=== PATIENT | female | born 2000 | race Caucasian/White ===

== ENCOUNTER 2025-02-25 15:31 | Inpatient (IN) ==
--- NOTE | 2025-02-25 15:51 | History & Physical Report ---
Date of Service February 25, 2025 Assessment & Plan (1) Supervision of normal intrauterine in primigravida: Plan: Admit to L&D. EFM/toco. Labs. IV. Undecided about epidural. PCN for GBS+ History of Present Illness Chief Complaint: labor Primary Care Provider: DAYANA PCP 24yo @ 40 12/08, came to L&D with contractions. Starting cortez earlier this morning, these have increased to Q2 min at this point. 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 Allergies Allergy/AdvReac Type Severity Reaction Status Date / Time No Known Allergies Allergy Verified 02/22/25 13:49 Home Medications Medication Instructions Recorded Confirmed Type prenat.vits,sara,[id number] tab PO 07/11/24 02/22/25 History skin cleanser comb no.10 [Gentle topical 07/11/24 02/22/25 History Skin Cleanser(with SLS)] triamcinolone acetonide 0.1 % topical 07/11/24 02/22/25 History topical ointment azelaic acid topical PRN 07/18/24 02/22/25 History Patient History Medical History (Updated 02/05/25 @ 08:14 by Wandy Ryder) Asthma Psoriasis Surgical History (Updated 08/18/24 @ 09:44 by Iveth Wilson MD) S/P dilation and curettage S/P exploratory laparotomy x3 as an infant 08/2000 - ex lap w/ broviac placement 09/2000 - 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 10/2000 - ex lap, LILIA, small bowel resection, gastrostomy, jejunojejunostomy, appendectomy Family History (Updated 07/11/24 @ 13:38 by Wandy Ryder) Other Breast cancer Diabetes Dyslipidemia Heart disease Hypertension Kidney disease Lung disease Ovarian cancer Social History (Updated 07/11/24 @ 13:39 by Wandy Ryder) Smoking Status: Never smoker Do You Dip or Chew Tobacco: No; marital status: Single marital status details: Maxim (26) [phone] Current Living Situation: Significant Other Current Living Situation Comment: lives with fob, 1cat, fob to change litter current occupational status: employed current occupation: exceptional student education teacher Review of Systems All systems reviewed & are unremarkable except as noted in HPI & below Physical Exam Physical Exam: Uncomfortable. FHT Cat 1 Magee Q 2 SVE 5/100/-2, bulging membranes Constitutional: WD/WN, vitals as above Respiratory: normal respiratory effort, lungs clear to auscultation no respiratory distress Cardiovascular: Rate/Rhythm: regular rate and regular rhythm Gastrointestinal (Abdomen): Inspection/Auscultation: abdomen normal to inspection Percussion/Palpation: abdomen soft; abdomen nontender Gravid. No s/s chorio or abruption. Skin: no rashes, warm and dry Psychiatric: A+Ox3, euthymic affect Coding Level of Care Code None Diagnoses Supervision of normal intrauterine in primigravida Z34.00
[2025-02-25] MEDS: LACTATED RINGER'S 1,000 ML IV PRN (15:55)
[2025-02-25 16:16] LABS: Hematocrit (blood only) 37.7 % (37.0-47.0); Hemoglobin 13.7 g/dl (12.0-16.0); Mean Corpuscular Hemoglobin 30.1 pg (25.0-34.0); Mean Corpuscular Hgb Conc 36.3 g/dL (32.0-36.0); Mean Corpuscular Volume 82.9 fL (80.0-100.0); Mean Platelet Volume 11.7 fL (9.4-12.4); Platelet Count 169 K/uL (130-400); RDW Coefficient of Variation 12.2 % (11.5-14.5); RDW Standard Deviation 37.2 fL (36.4-46.3); Red Blood Count 4.55 M/uL (4.20-5.40); White Blood Count 14.48 K/ul (4.8-10.8)
[2025-02-25] MEDS ORDERED: NALOXONE HCL 0.4 MG/1 ML VIAL/CARP IV PRN (16:29)
[2025-02-25] MEDS ORDERED: ePHEDrine sulfate 50 MG/ML AMP IV PRN (16:29)
[2025-02-25] MEDS ORDERED: fentaNYL citrate PF 100 MCG/2 ML VIAL EPI PRN (16:29)
[2025-02-25] MEDS ORDERED: NALBUPHINE HCL INJ 10 MG/ML AMP IV PRN (16:29)
[2025-02-25] MEDS ORDERED: diphenhydrAMINE 50 MG/ML VIAL IV PRN (16:29)
[2025-02-25] MEDS ORDERED: ROPIVACAINE 0.5% PF 5 MG/ML 20 ML VIAL EPI PRN (16:29)
[2025-02-25] MEDS ORDERED: BUPIVACAINE 0.25% PF 30 ML VIAL EPI PRN (16:29)
[2025-02-25] MEDS ORDERED: SODIUM CHLORIDE 0.9% PF INJ 10 ML VIAL EPI PRN (16:29)
[2025-02-25] MEDS ORDERED: NALOXONE HCL 1 MG in SODIUM CHLORIDE 0.9% 1,000 ML IV PRN (16:29)
[2025-02-25] MEDS ORDERED: LIDOCAINE 2% MPF LOCAL 5 ML VIAL EPI PRN (16:29)
[2025-02-25] MEDS ORDERED: fentANYL 2 MCG/ML BUPIVacaine 0.125%-NSS 100ML BAG EPI PRN (16:29)
--- NOTE | 2025-02-25 16:29 | Anesthesiology Consultation ---
Date of Service February 25, 2025 Assessment & Plan (1) Encounter for pre-operative examination: Chart Review Chart Review: Patient NOT seen in Pre Admission Testing and Acceptable Risk for Labor Epidural Consults Requested none History Height/Weight Height: 5 ft 2 in Weight: 86.183 kg Allergies Allergy/AdvReac Type Severity Reaction Status Date / Time No Known Allergies Allergy Verified 02/22/25 13:49 Medications Home Medications Medication Instructions Recorded Confirmed Last Taken prenat.vits,sara,mvj-nciy-cqfed tab PO 07/11/24 02/22/25 02/25/25 Active Medications Generic Name Dose Route Start Last Admin Trade Name Freq PRN Reason Stop Dose Admin Lactated Ringer's 1,000 mls @ 125 mls/hr 02/25/25 15:48 02/25/25 15:55 Lr IV 02/26/25 15:47 999 mls/hr .Q8H PRN Administration L&D Protocol Protocol Past Medical History Medical History Asthma Psoriasis Past Family History Family History Other Breast cancer Diabetes Dyslipidemia Heart disease Hypertension Kidney disease Lung disease Ovarian cancer Past Surgical History Surgical History S/P dilation and curettage S/P exploratory laparotomy x3 as an infant 08/2000 - ex lap w/ broviac placement 09/2000 - 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
[2025-02-25] MEDS: PENICILLIN GK 6 MU in DEXTROSE 5% 250 ML IV STA (16:40)
[2025-02-25] MEDS: fentaNYL citrate PF 100 MCG/2 ML VIAL ONE (16:45)
[2025-02-25] MEDS: LIDOCAINE 2%/EPINEPHRINE 1:200,000 20 ML PF ONE (16:51)
[2025-02-25] MEDS: BUPIVACAINE 0.25% PF 30 ML VIAL ONE (16:52)
[2025-02-25] MEDS: fentANYL 2 MCG/ML BUPIVacaine 0.125%-NSS 100ML BAG ONE (16:52)
[2025-02-25] MEDS: fentaNYL citrate PF 100 MCG/2 ML VIAL EPI STA (17:28)
[2025-02-25] MEDS: SODIUM CHLORIDE 0.9% PF INJ 10 ML VIAL EPI STA (17:28)
[2025-02-25] MEDS: BUPIVACAINE 0.25% PF 30 ML VIAL EPI STA (17:28)
[2025-02-25] MEDS: LIDOCAINE 2%/EPINEPHRINE 1:200,000 20 ML PF EPI STA (17:28)
[2025-02-25] MEDS: SODIUM CHLORIDE 0.9% PF INJ 10 ML VIAL ONE (17:28)
[2025-02-25] MEDS: PENICILLIN GK 3 MU in DEXTROSE 5% 100 ML IV PRN (20:13)
[2025-02-25] MEDS: OXYTOCIN 30 UNITS/NSS 30 UNITS/500 ML BAG IV PRN (21:10)
[2025-02-25] MEDS: LIDOCAINE 1% LOCAL 20 ML VIAL INFIL PRN (21:17)
[2025-02-25] MEDS: KETOROLAC 30 MG/ML VIAL IV ONE (21:50)
[2025-02-25] MEDS: KETOROLAC 30 MG/ML VIAL ONE (21:53)
--- NOTE | 2025-02-25 21:58 | Delivery Summary ---
Vaginal Delivery Summary Date of Service February 25, 2025 Vaginal Delivery Summary and 4th Degree LAC Vaginal Delivery Summary: Pre-delivery diagnoses: 24yo @ 40 2/7, spontaneous labor, GBS+ Post-delivery diagnoses: same + 4th degree perineal laceration Procedure: spontaneous vaginal delivery Surgeon: Penny Hernandes DO Complications: none Findings: Viable female . Apgars: 8/9 . Weight pending, please see nursery records Estimated QBL: 569cc Description of delivery: The patient progressed to complete with epidural anesthesia. She then began to push. She spontaneously vaginally delivered a viable from the cephalic presentation. The head delivered in TREVON position. Nuchal x 1, too tight to reduce, delivered through. The anterior shoulder delivered, followed by the posterior shoulder, followed by the body. The baby was placed on mother's abdomen and a spontaneous cry was heard. Delayed cord clamping was employed, and the cord was doubly clamped and cut. Cord blood was obtained. The placenta was delivered spontaneously intact with a 3-vessel cord. The uterus and vagina were swept of clots and debris. IV pitocin was given. The uterus became firm. The cervix, vagina, and perineum were inspected. A 4th degree perineal laceration was noted. 1% lidocaine was injected for local anesthetic, epidural pump button pushed, and patient given IV toradol for pain control. The bilateral external anal sphincter edges were grasped with Allis clamps. The internal anal sphincter was reapproximated with 3-0 Vicryl in an overlapping running stitch, avoiding mucosal entry. The external anal sphincter was reapproximated with 3-0 Chromic suture in interrupted sutures, incorporating the fascial sheath into the stitch. The remaining tear was reapproximated with 3-0 Vicryl in standard fashion. Rectal exam at conclusion of repair revealed now-intact rectum, no sutures in rectum. Excellent hemostasis was observed. The mother and baby are recovering in stable and good condition in the room. Sponge, needle and instrument counts were correct x 2. Penny Hernandes DO [facility] Vaginal Delivery Charge Vaginal Delivery Codes: 37864 global code for the antepartum, delivery, and post- Delivery Type Details: and 4th Degree LAC
[2025-02-25] MEDS: cefOXitin 2,000 MG in DEXTROSE 5 % MINI-B 50 ML IV STA (22:19)
[2025-02-25] MEDS ORDERED: OXYTOCIN 30 UNITS/NSS 30 UNITS/500 ML BAG IV PRN (22:39)
[2025-02-25] MEDS ORDERED: HYDROCORTISONE ACETATE 25 MG SUPP PR PRN (22:39)
[2025-02-25] MEDS ORDERED: oxyCODONE/ACETAMINOPHEN 5mg/325mg TAB PO PRN (22:39)
[2025-02-25] MEDS: DIPHTHER/TETAN/PERTUS Vaccine (Tdap, Adol/Adult) 0.5mL IM ONE (22:59)
[2025-02-25] MEDS: ePHEDrine sulfate 50 MG/ML AMP ONE (23:00)
--- NOTE | 2025-02-26 00:28 | Anesthesia Procedure Note ---
Date of Service February 26, 2025 Anesthesia Post Epidural Note Vital Signs Vital Signs: Temp Pulse Resp BP Pulse Ox O2 Del Method 36.8 C 96 H 18 118/75 98 Room Air 02/25/25 22:00 02/26/25 00:01 02/26/25 00:00 02/26/25 00:01 02/25/25 22:00 02/25/25 19:12 Notes Mental Status: alert / awake / arousable and participated in evaluation Patient Amnestic to Procedure: No Nausea / Vomiting: adequately controlled Pain: adequately controlled Airway Patency, RR, SpO2: stable & adequate BP & HR: stable & adequate Hydration State: stable & adequate Neuraxial Anesthesia: was administered and sensory block is resolving Anesthetic Complications: no major complications apparent and Pt Satisfied with anesthetic care Epidural: Removed without complications and With tip intact
[2025-02-26] MEDS: ACETAMINOPHEN 325 MG TAB PO PRN (03:28)
[2025-02-26] MEDS: BENZOCAINE 20% SPRY 85 APPLN/85 GM CAN EXT PRN (03:28)
[2025-02-26] MEDS: IBUPROFEN 600 MG TAB PO PRN (03:28)
[2025-02-26 06:28] LABS: Hematocrit (blood only) 28.4 % (37.0-47.0)
[2025-02-26] MEDS: PRENATAL VITAMIN 1 TAB PO SCH (07:31)
[2025-02-26] MEDS: DOCUSATE SODIUM 100 MG CAP PO SCH (07:31)
--- NOTE | 2025-02-26 08:13 | Obstetrical Progress Note ---
Date of Service February 26, 2025 Assessment & Plan (1) Fourth degree perineal laceration: PPD#1 doing well. Continue bowel regimen. Routine care. Subjective Ambulation: ambulating normally Voiding: no voiding problems Diet Tolerance:: regular diet Lochia:: Moderate Review of Systems All systems reviewed & are unremarkable except as noted in HPI & below Physical Exam Constitutional WD/WN, vitals as above no acute distress Respiratory normal respiratory effort Cardiovascular Rate/Rhythm: regular rate and regular rhythm Gastrointestinal (Abdomen) Inspection/Auscultation: abdomen normal to inspection; abdomen not distended Percussion/Palpation: abdomen soft Genitourinary OB Exam Abdomen: + fundal height Fundus: + firm; not tender Results & Data Vital Signs (Past 12 Hours) Vital Signs Temp Pulse Pulse Resp BP BP Pulse Ox 02/26/25 07:49 36.4 C L 91 H 16 118/79 99 02/26/25 03:25 36.7 C 97 H 18 116/75 100 02/26/25 00:20 36.6 C 89 16 118/80 99 02/26/25 00:01 96 H 118/75 02/26/25 00:00 96 H 18 118/75 02/25/25 23:31 80 02/25/25 23:31 118/74 02/25/25 23:30 80 18 118/74 02/25/25 23:01 65 02/25/25 23:01 116/68 02/25/25 23:00 65 18 116/68 02/25/25 22:46 73 02/25/25 22:46 123/72 02/25/25 22:45 73 16 123/72 02/25/25 22:30 18 02/25/25 22:29 101 H 02/25/25 22:29 134/74 02/25/25 22:15 16 02/25/25 22:12 92 H 02/25/25 22:12 124/85 02/25/25 22:00 36.8 C 101 H 18 134/74 98 02/25/25 21:57 90 02/25/25 21:57 117/81 02/25/25 21:16 100 H 02/25/25 21:16 136/68 02/25/25 21:11 98 02/25/25 21:11 104 H 02/25/25 21:06 99 02/25/25 21:06 110 H 02/25/25 21:01 100 02/25/25 21:01 119 H 02/25/25 20:58 95 H 02/25/25 20:58 133/86 02/25/25 20:56 100 02/25/25 20:56 104 H 02/25/25 20:51 100 02/25/25 20:51 82 02/25/25 20:46 100 02/25/25 20:46 87 02/25/25 20:44 134 H 02/25/25 20:44 140/90 02/25/25 20:41 98 02/25/25 20:41 129 H 02/25/25 20:36 100 02/25/25 20:36 125 H 02/25/25 20:31 100 02/25/25 20:31 86 02/25/25 20:30 18 02/25/25 20:30 18 02/25/25 20:27 96 H 02/25/25 20:27 138/76 02/25/25 20:26 100 02/25/25 20:26 71 02/25/25 20:21 100 02/25/25 20:21 96 H 02/25/25 20:16 100 02/25/25 20:16 84 02/25/25 20:13 75 02/25/25 20:13 133/64 O2 Del Method 02/26/25 07:49 Room Air 02/26/25 03:25 Room Air 02/26/25 00:20 Room Air 02/26/25 00:01 02/26/25 00:00 02/25/25 23:31 02/25/25 23:31 02/25/25 23:30 02/25/25 23:01 02/25/25 23:01 02/25/25 23:00 02/25/25 22:46 02/25/25 22:46 02/25/25 22:45 02/25/25 22:30 02/25/25 22:29 02/25/25 22:29 02/25/25 22:15 02/25/25 22:12 02/25/25 22:12 02/25/25 22:00 02/25/25 21:57 02/25/25 21:57 02/25/25 21:16 02/25/25 21:16 02/25/25 21:11 02/25/25 21:11 02/25/25 21:06 02/25/25 21:06 02/25/25 21:01 02/25/25 21:01 02/25/25 20:58 02/25/25 20:58 02/25/25 20:56 02/25/25 20:56 02/25/25 20:51 02/25/25 20:51 02/25/25 20:46 02/25/25 20:46 02/25/25 20:44 02/25/25 20:44 02/25/25 20:41 02/25/25 20:41 02/25/25 20:36 02/25/25 20:36 02/25/25 20:31 02/25/25 20:31 02/25/25 20:30 02/25/25 20:30 02/25/25 20:27 02/25/25 20:27 02/25/25 20:26 02/25/25 20:26 02/25/25 20:21 02/25/25 20:21 02/25/25 20:16 02/25/25 20:16 02/25/25 20:13 02/25/25 20:13
[2025-02-26 21:21] VITALS: RESP 16; O2SAT 99
[2025-02-26] MEDS: bisacodyL 5 MG TABEC PO SCH (21:39)
--- NOTE | 2025-02-27 07:50 | Obstetrical Progress Note ---
Date of Service February 27, 2025 Assessment & Plan (1) Encounter for care and examination after delivery: (2) Fourth degree perineal laceration: Plan 24 yo PP2 from , doing well -Meeting all pp milestones -O+/rubella immune/ -f/u 6 weeks for appt, reviewed continued use of bowel regimen due to 4th. Stable for dc home Subjective Ambulation: ambulating normally Voiding: no voiding problems Passing Gas:: Yes Diet Tolerance:: regular diet Lochia:: Small Feeding Type:: breast feeding Pain managed with medication but fairly sore Review of Systems Denies fevers, chills, n/v, WOMACK, CP, SOB Physical Exam Constitutional WD/WN, vitals as above no acute distress Respiratory normal respiratory effort, lungs clear to auscultation Cardiovascular RRR, no murmur, no edema Gastrointestinal (Abdomen) Percussion/Palpation: abdomen soft; abdomen nontender fundus firm at umbilicus and NT Musculoskeletal BLE symmetric, nonerythematous, nontender Results & Data Vital Signs (Past 12 Hours) Vital Signs Temp Pulse Resp BP Pulse Ox O2 Del Method 02/27/25 04:00 97.9 F 87 16 116/79 99 Room Air 02/26/25 20:00 97.5 F L 90 16 116/76 99 Room Air
[2025-02-27 08:47] VITALS: BP 126/88; PULSE 88; TEMP 98.4
== END 2025-02-27 13:55 | disposition home or self-care (01) | DRG 768 ==
LOC: OPB 15:31 → 4S1 15:36 → 4E2 02-26 00:43